=== PATIENT | male | born 1955 | race Caucasian/White ===

== ENCOUNTER 2020-11-17 12:48 | Emergency (ER) | payer MEDICARE, OTHER ==
[2020-11-17] MEDS ORDERED: Ketorolac 60 MG/2 ML SDV IM ONE (13:58)
[2020-11-17] MEDS ORDERED: Cyclobenzaprine 10 MG Tab PO ONE (13:58)
--- NOTE | 2020-11-17 13:59 | EDM.PDOC ---
ED HPI GENERAL MEDICAL PROBLEM - General Chief Complaint: Back Pain or Injury Stated Complaint: SORE AND PAINFUL BACK NO FALLS Time Seen by Provider: 11/17/20 13:55 Source of Information: Reports: Patient, RN Notes Reviewed History Limitations: Reports: No Limitations - History of Present Illness INITIAL COMMENTS - FREE TEXT/NARRATIVE: 65-year-old gentleman presents emergency department a complaint of low back pain, he injured himself when he was out working in the garage today had bent over and then when he stood up sudden onset of low back pain bilaterally with muscle spasms no loss of bowel or bladder no fevers - Related Data Allergies Allergy/AdvReac Type Severity Reaction Status Date / Time nut - unspecified Allergy Anaphylactic Verified 11/17/20 13:34 Shock fresh fruit Allergy Anaphylactic Uncoded 11/17/20 13:34 Shock Home Meds: Home Meds Albuterol Sulfate [Proair Hfa] 2 puff INH Q4H PRN 09/05/18 [History] Cetirizine HCl [Zyrtec] 10 mg PO DAILY 09/05/18 [History] EPINEPHrine [Epipen] 0.3 mg IM ASDIRECTED PRN 09/05/18 [History] Ezetimibe [Zetia] 10 mg PO DAILY 09/05/18 [History] Fluticasone Propion/Salmeterol [Advair 250-50 Diskus] 1 puff INH BID 09/05/18 [History] Fluticasone Propionate [Flonase] 1 spray NIKOLAI BID 09/05/18 [History] Levothyroxine 125 mcg PO DAILY 09/05/18 [History] Montelukast [Singulair] 10 mg PO DAILY 09/05/18 [History] Olopatadine [Patanol 0.1% Ophth Soln] 1 drop EYEBOTH BID 09/05/18 [History] Pantoprazole Sodium [Protonix] 40 mg PO DAILY 09/05/18 [History] Tamsulosin HCl [Flomax] 0.4 mg PO DAILY 09/05/18 [History] Triamcinolone Acetonide [Triamcinolone Acetonide 0.1% Oint] 1 applic TOP BID 09/05/18 [History] Cholecalciferol (Vitamin D3) [Vitamin D] 5,000 unit PO DAILY 09/07/18 [History] Multivitamin [Multiple Vitamins] 1 tab PO DAILY 09/07/18 [History] Past Medical History HEENT History: Reports: Impaired Vision Other HEENT History: wears glasses Cardiovascular History: Reports: High Cholesterol Respiratory History: Reports: Asthma Gastrointestinal History: Reports: Colon Polyp Musculoskeletal History: Reports: Back Pain, Chronic Neurological History: Reports: Concussion Endocrine/Metabolic History: Reports: Hypothyroidism - Infectious Disease History Infectious Disease History: Reports: Chicken Pox, Mumps - Past Surgical History HEENT Surgical History: Reports: Oral Surgery Other HEENT Surgeries/Procedures: wisdom teeth GI Surgical History: Reports: Cholecystectomy, Colonoscopy, Hernia, Inguinal Musculoskeletal Surgical History: Reports: Other (See Below) Other Musculoskeletal Surgeries/Procedures:: cysts removed from "tail bone" Social & Family History - Family History Family Medical History: No Pertinent Family History - Tobacco Use Tobacco Use Status *Q: Never Tobacco User - Caffeine Use Caffeine Use: Reports: Soda ED ROS GENERAL - Review of Systems Review Of Systems: See Below Constitutional: Denies: Fever GI/Abdominal: Reports: No Symptoms Musculoskeletal: Reports: Back Pain Neurological: Reports: No Symptoms ED EXAM,LOWER BACK PAIN/INJURY - Physical Exam Exam: See Below Exam Limited By: No Limitations General Appearance: Alert, WD/WN, No Apparent Distress Respiratory/Chest: No Respiratory Distress GI/Abdominal: Soft, Non-Tender Back Exam: Normal Inspection, Decreased Range of Motion, Muscle Spasm, Paraspinal Tenderness. No: CVA Tenderness (R), CVA Tenderness (L), Vertebral Tenderness Course - Vital Signs Last Recorded V/S: Last Vital Signs Temp 97.3 F 11/17/20 13:41 Pulse 80 11/17/20 13:41 Resp 16 11/17/20 13:41 BP 136/82 11/17/20 13:41 Pulse Ox 97 11/17/20 13:41 - Orders/Labs/Meds Meds: Medications Discontinued Medications Generic Name Dose Route Start Last Admin Trade Name Freq PRN Reason Stop Dose Admin Cyclobenzaprine HCl 10 mg 11/17/20 13:58 11/17/20 14:02 Flexeril PO 11/17/20 13:59 10 mg ONETIME ONE Administration Ketorolac Tromethamine 60 mg 11/17/20 13:58 11/17/20 14:02 Toradol IM 11/17/20 13:59 60 mg ONETIME ONE Administration Departure - Departure Time of Disposition: 15:13 Disposition: Home, Self-Care 01 Condition: Fair Clinical Impression: Low back pain Qualifiers: Chronicity: acute Back pain laterality: bilateral Sciatica presence: without sciatica Qualified Code(s): M54.5 - Low back pain - Discharge Information Instructions: Acute Back Pain, Adult Referrals: Elieser Mora MD [Primary Care Provider] - Forms: ED Department Discharge Additional Instructions: Continue to use ibuprofen or Tylenol for baseline pain control, use the Flexeril as needed for muscle relaxant, use the hydrocodone as needed for breakthrough pain, please followup with your primary care provider in 5-7 days if not better, please call return to the emergency department with worsening of symptoms. Sepsis Event Note (ED) - Evaluation Sepsis Screening Result: No Definite Risk - Focused Exam Vital Signs: Vital Signs Temp Pulse Resp BP Pulse Ox 11/17/20 13:41 97.3 F 80 16 136/82 97 11/17/20 13:13 97.3 F 80 16 136/82 97 - Assessment/Plan Plan: Assessment Acuity = acute Site and laterality = low back pain Etiology = secondary to a twisting injury Manifestations = none Location of injury = Home Lab values = none Plan Good improvement with Toradol Flexeril in the emergency department prescription written for Flexeril 10 mg p.o. 3 times daily as needed total #15 also hydrocodone 5/325 1 tab p.o. every 6 hours as needed total #6 This note was dictated using [employer] voice recognition software please call with any questions on syntax or grammar.
== END 2020-11-17 15:25 | disposition home or self-care (01) ==
LOC: JP.ED 12:48
DX: M54.5 Low back pain (principal); J45.909 Unspecified asthma, uncomplicated; E03.9 Hypothyroidism, unspecified; Z79.899 Other long term (current) drug therapy; Z91.018 Allergy to other foods
CPT/HCPCS: 96372; 99283; A9270; J1885

== ENCOUNTER 2021-09-23 06:46 | Day surgery (SDC) | payer MEDICARE, OTHER ==
[2021-09-23] MEDS ORDERED: Sodium Chloride 0.9% 1,000 ML IV SCH (07:15)
[2021-09-23] MEDS ORDERED: Midazolam 1 MG/ML 2 ML SDV ONE (07:16)
[2021-09-23] MEDS ORDERED: fentaNYL 100 MCG/2 ML SDV ONE (07:16)
[2021-09-23] MEDS ORDERED: Propofol 200 MG/20 ML SDV ONE (07:16)
--- NOTE | 2021-09-23 08:49 | OR ---
DATE OF PROCEDURE: 09/23/2021 SURGEON: Mynor Leo MD PROCEDURE: Colonoscopy. FINDINGS: Normal colonoscopy. COMPLICATIONS: None. PATIENT ADMITTING REPRESENTATIVE: None. ANESTHESIA: MAC. PREOPERATIVE DIAGNOSIS: Family history of colorectal cancer. POSTOPERATIVE DIAGNOSIS: Family history of colorectal cancer. RISKS: Risks, benefits, alternatives and limitations including but not limited to infection, bleeding, perforation, false positives and false negatives were explained to the patient who wished to proceed. PROCEDURE IN DETAIL: The patient was placed in left lateral decubitus position. Digital rectal exam was performed without abnormality. Scope was introduced and advanced atraumatically to the ileocecal valve. Photo was taken of the appendiceal orifice. Scope was brought back to the ascending, transverse, descending colon and retroflexed. No evidence of old or new blood. No masses. No polyps. No diverticulosis. No evidence of colitis. No abnormalities on retroflexion. Greater than 8 minutes was spent removing the scope. Prep was acceptable, approximately 90% of luminal surface with some solid and liquid stool remaining. The patient tolerated the procedure well. Recommend repeat colonoscopy in 5 years due to family history. Mynor Leo MD /[id number]
== END 2021-09-23 09:38 | disposition home or self-care (01) ==
LOC: JP.SDS 06:46
PROVIDERS: ATTEND Surgery
DX: Z12.11 Encounter for screening for malignant neoplasm of colon (principal); Z80.0 Family history of malignant neoplasm of digestive organs
CPT/HCPCS: J2250; J2704; J3010; J7030